=== PATIENT | male | born 1960 | race Caucasian/White ===

== ENCOUNTER 2023-01-14 13:15 | Observation (INO) | payer OTHER, MEDICAID ==
[2023-01-14] MEDS ORDERED: Sodium Chloride 0.9% 1,000 ML IV ONE ×3 (13:19→14:39)
[2023-01-14] MEDS ORDERED: Thiamine 500 MG in Sodium Chloride 0.9% 250 ML IV STA (13:33)
[2023-01-14] MEDS ORDERED: Folic Acid 1 MG/0.2 ML UD Syringe IV STA (13:34)
[2023-01-14 13:45] LABS: BASOPHILS PERCENT AUTO 0.3 % (0.0-1.5); EOSINOPHILS PERCENT AUTO 0.3 % (0.0-7.0); HEMOGLOBIN 13.9 g/dL (13.0-17.0); LYMPHOCYTES ABSOLUTE AUTO 2.8 K/uL (0.6-2.4); LYMPHOCYTES PERCENT AUTO 31.4 % (16.0-40.0); MEAN CORPUSCULAR HEMOGLOBIN 33.1 pg (27.0-32.0); MEAN CORPUSCULAR HGB CONC 35.6 g/dL (31.0-37.0); MEAN CORPUSCULAR VOLUME 92.9 fL (80.0-98.0); MONOCYTES ABSOLUTE AUTO 0.7 K/uL (0.0-0.8); MONOCYTES PERCENT AUTO 7.4 % (0.0-15.0); NEUTROPHILS ABSOLUTE AUTO 5.4 K/uL (1.4-5.7); NEUTROPHILS PERCENT AUTO 60.6 % (48.0-80.0); NRBC ABSOLUTE 0 K/uL; PLATELET COUNT,PLT 247 K/uL (150-400); WHITE BLOOD CELL COUNT,WBC 8.89 K/uL (4.0-11.0)
[2023-01-14 13:51] LABS: INR 1.09 (0.86-1.11); PTT,PARTIAL THROMBOPLSTIN TIME 24.4 SEC (23.9-30.7)
[2023-01-14 14:07] LABS: LACTIC ACID 3.8 mmol/L (0.4-2.0)
[2023-01-14 14:12] LABS: A/G RATIO 1.1 (0.9-1.6); ALBUMIN 3.2 g/dL (3.4-5.0); BILIRUBIN TOTAL 0.7 mg/dL (0.2-1.0); CALCIUM 8.3 mg/dL (8.5-10.1); CARBON DIOXIDE,CO2 27.2 mmol/L (21.0-32.0); CREATININE 1.5 mg/dL (0.8-1.3); EST CRCL DRUG DOSING (CG) 41.66 mL/min; MAGNESIUM 1.9 mg/dL (1.8-2.4); POTASSIUM,K 2.6 mmol/L (3.5-5.1); PROTEIN TOTAL,TP 6.2 g/dL (6.4-8.2); TSH ULTRASENSITIVE 1.24 uIU/mL (0.36-3.74)
[2023-01-14] MEDS ORDERED: Potassium Chloride 20 MEQ Tab.ER PO ONE (14:39)
[2023-01-14] MEDS: Potassium Chloride 100 ML IV SCH ×2 (15:49→19:59)
[2023-01-14] MEDS ORDERED: Sodium Chloride 0.9% 10 ML Syringe FLUSH PRN (16:18)
[2023-01-14] MEDS ORDERED: Ondansetron 4 MG/2 ML SDV IVPUSH PRN (16:18)
[2023-01-14] MEDS ORDERED: Sodium Chloride 0.9% 2.5 ML Syringe FLUSH PRN (16:18)
[2023-01-14] MEDS ORDERED: Acetaminophen 325 MG Tab PO PRN (16:18)
[2023-01-14] MEDS ORDERED: LORazepam 2 MG/ML SDV IVPUSH PRN (16:26)
[2023-01-14] MEDS: Pantoprazole 40 MG in Sodium Chloride 0.9% 10 ML IVPUSH SCH (18:49)
[2023-01-14 19:18] LABS: APPEARANCE,URINE CLEAR; BILIRUBIN,URINE NEGATIVE (NEGATIVE); COLOR,URINE YELLOW; GLUCOSE,URINE NEGATIVE (NEGATIVE); KETONES,URINE NEGATIVE (NEGATIVE); LEUKOCYTE ESTERASE,URINE NEGATIVE (NEGATIVE); NITRITE,URINE NEGATIVE (NEGATIVE); OCCULT BLOOD,URINE NEGATIVE (NEGATIVE); PH,URINE 6.5 (5.0-8.0); PROTEIN,URINE NEGATIVE (NEGATIVE); UROBILINOGEN,URINE 0.2 EU/dL (<2.0)
[2023-01-14 19:28] LABS: AMPHETAMINES SCREEN, URINE NEGATIVE (CUTOFF=500); BARBITURATE SCREEN,URINE NEGATIVE (CUTOFF=200); BENZODIAZEPINES SCREEN,URINE NEGATIVE (CUTOFF=150); BUPRENORPHINE SCREEN,URINE NEGATIVE (CUTOFF=10); METHADONE SCREEN, URINE NEGATIVE (CUTOFF=200); METHAMPHETAMINES SCREEN, URINE NEGATIVE (CUTOFF=500); OXYCODONE SCREEN,URINE NEGATIVE (CUT0FF=100); PCP SCREEN,URINE NEGATIVE (CUTOFF=25); PROPOXYPHENE SCREEN,URINE NEGATIVE (CUTOFF=300); THC SCREEN,URINE 20 NG/ML NEGATIVE (CUTOFF=50)
[2023-01-14] MEDS: Sodium Chloride 0.9% 1,000 ML IV SCH (19:40)
[2023-01-14] MEDS: Thiamine 500 MG in Sodium Chloride 0.9% 250 ML IV SCH (22:33)
[2023-01-15] MEDS: Sodium Chloride 0.9% 1,000 ML IV SCH (00:21)
[2023-01-15 01:16] LABS: LACTIC ACID 3.8 mmol/L (0.4-2.0)
[2023-01-15] MEDS ORDERED: Sodium Chloride 0.9% 1,000 ML IV ONE (03:02)
[2023-01-15] MEDS ORDERED: Potassium Chloride 20 MEQ Tab.ER PO ONE ×2 (03:03→08:18)
[2023-01-15] MEDS: Potassium Chloride 20 MEQ in Premix Bag 1 BAG IV SCH ×2 (03:27→05:34)
[2023-01-15] MEDS: Thiamine 500 MG in Sodium Chloride 0.9% 250 ML IV SCH ×3 (05:25→22:29)
[2023-01-15] MEDS: Losartan 50 MG Tab PO SCH (06:22)
[2023-01-15] MEDS: Metoprolol Tartrate 50 MG Tab PO SCH ×2 (06:23→20:34)
[2023-01-15 06:30] LABS: BASOPHILS PERCENT AUTO 0.3 % (0.0-1.5); EOSINOPHILS PERCENT AUTO 0.3 % (0.0-7.0); HEMATOCRIT 35.6 % (38.0-50.0); HEMOGLOBIN 12.5 g/dL (13.0-17.0); LYMPHOCYTES PERCENT AUTO 14.8 % (16.0-40.0); MEAN CORPUSCULAR HEMOGLOBIN 32.8 pg (27.0-32.0); MEAN CORPUSCULAR HGB CONC 35.1 g/dL (31.0-37.0); MEAN CORPUSCULAR VOLUME 93.4 fL (80.0-98.0); MONOCYTES ABSOLUTE AUTO 0.4 K/uL (0.0-0.8); MONOCYTES PERCENT AUTO 6.4 % (0.0-15.0); NEUTROPHILS PERCENT AUTO 78.2 % (48.0-80.0); NRBC ABSOLUTE 0 K/uL; PLATELET COUNT,PLT 137 K/uL (150-400); RED BLOOD CELL COUNT 3.81 M/uL (4.50-5.90); WHITE BLOOD CELL COUNT,WBC 6.42 K/uL (4.0-11.0)
[2023-01-15] MEDS ORDERED: Labetalol 100 MG/20 ML MDV IVPUSH PRN (08:04)
[2023-01-15 08:11] LABS: CALCIUM 7.4 mg/dL (8.5-10.1); CARBON DIOXIDE,CO2 22.7 mmol/L (21.0-32.0); CREATININE 1.1 mg/dL (0.8-1.3); EST CRCL DRUG DOSING (CG) 61.22 mL/min; MAGNESIUM 1.5 mg/dL (1.8-2.4); POTASSIUM,K 3.4 mmol/L (3.5-5.1)
[2023-01-15] MEDS: Aspirin 81 MG Tab.Chew PO SCH (08:11)
[2023-01-15] MEDS: Folic Acid 1 MG Tab PO SCH (08:11)
[2023-01-15] MEDS: Sertraline 50 MG Tab PO SCH (08:11)
[2023-01-15] MEDS: Rosuvastatin 10 MG Tab PO SCH (08:11)
[2023-01-15] MEDS: Cetirizine 10 MG Tab PO SCH (08:12)
[2023-01-15] MEDS ORDERED: Magnesium Sulfate/Water 4 GM in Premix Bag 1 BAG IV ONE (08:18)
[2023-01-15] MEDS ORDERED: Prasugrel Hcl [Effient] 10 MG Tablet PO SCH (09:00)
[2023-01-15] MEDS: cloNIDine 0.1 MG Tab PO PRN (10:38)
[2023-01-15] MEDS: Prasugrel Hcl [Effient] 10 MG Tablet PO SCH (11:59)
[2023-01-15] MEDS: Pantoprazole 40 MG in Sodium Chloride 0.9% 10 ML IVPUSH SCH (15:55)
[2023-01-16] MEDS: cloNIDine 0.1 MG Tab PO PRN (03:41)
[2023-01-16] MEDS: Thiamine 500 MG in Sodium Chloride 0.9% 250 ML IV SCH ×2 (05:28→15:00)
[2023-01-16 07:08] LABS: BASOPHILS PERCENT AUTO 0.4 % (0.0-1.5); EOSINOPHILS PERCENT AUTO 0.4 % (0.0-7.0); HEMATOCRIT 36.2 % (38.0-50.0); HEMOGLOBIN 12.4 g/dL (13.0-17.0); LYMPHOCYTES PERCENT AUTO 20.4 % (16.0-40.0); MEAN CORPUSCULAR HEMOGLOBIN 32.2 pg (27.0-32.0); MEAN CORPUSCULAR HGB CONC 34.3 g/dL (31.0-37.0); MONOCYTES ABSOLUTE AUTO 0.4 K/uL (0.0-0.8); NEUTROPHILS ABSOLUTE AUTO 3.4 K/uL (1.4-5.7); NEUTROPHILS PERCENT AUTO 69.8 % (48.0-80.0); NRBC ABSOLUTE 0 K/uL; PLATELET COUNT,PLT 115 K/uL (150-400); RED BLOOD CELL COUNT 3.85 M/uL (4.50-5.90); WHITE BLOOD CELL COUNT,WBC 4.89 K/uL (4.0-11.0)
[2023-01-16 07:26] LABS: CALCIUM 8.1 mg/dL (8.5-10.1); CARBON DIOXIDE,CO2 29.4 mmol/L (21.0-32.0); CREATININE 0.9 mg/dL (0.8-1.3); EST CRCL DRUG DOSING (CG) 74.83 mL/min; MAGNESIUM 1.6 mg/dL (1.8-2.4); PHOSPHORUS 2.6 mg/dL (2.6-4.7); POTASSIUM,K 2.9 mmol/L (3.5-5.1)
[2023-01-16] MEDS ORDERED: Potassium Chloride 20 MEQ Tab.ER PO ONE (07:46)
[2023-01-16] MEDS ORDERED: Magnesium Sulfate/Water 4 GM in Premix Bag 1 BAG IV ONE (07:46)
[2023-01-16] MEDS ORDERED: Sodium Chloride 0.9% 750 ML IV ONE (08:00)
[2023-01-16] MEDS: Losartan 50 MG Tab PO SCH (08:31)
[2023-01-16] MEDS: Aspirin 81 MG Tab.Chew PO SCH (08:31)
[2023-01-16] MEDS: Folic Acid 1 MG Tab PO SCH (08:31)
[2023-01-16] MEDS: Sertraline 50 MG Tab PO SCH (08:31)
[2023-01-16] MEDS: Cetirizine 10 MG Tab PO SCH (08:31)
[2023-01-16] MEDS: Prasugrel Hcl [Effient] 10 MG Tablet PO SCH (08:32)
[2023-01-16] MEDS: Potassium Chloride 20 MEQ in Premix Bag 1 BAG IV SCH ×3 (08:34→12:59)
[2023-01-16] MEDS: Metoprolol Tartrate 50 MG Tab PO SCH (08:35)
[2023-01-16] MEDS: Rosuvastatin 10 MG Tab PO SCH (08:35)
[2023-01-16] MEDS: Pantoprazole 40 MG in Sodium Chloride 0.9% 10 ML IVPUSH SCH (17:19)
== END 2023-01-16 16:39 | disposition home or self-care (01) ==
LOC: MW.ED 13:15 → MW.MS 16:07
PROVIDERS: ADMIT Internal Medicine; ATTEND Internal Medicine
DX: F10.121 Alcohol abuse with intoxication delirium (principal); E86.0 Dehydration; E87.6 Hypokalemia; F41.9 Anxiety disorder, unspecified; I10 Essential (primary) hypertension; I25.10 Atherosclerotic heart disease of native coronary artery without angina pectoris; I25.2 Old myocardial infarction; F17.210 Nicotine dependence, cigarettes, uncomplicated; Z20.822 Contact with and (suspected) exposure to COVID-19; Z79.82 Long term (current) use of aspirin; Z79.899 Other long term (current) drug therapy; Z95.5 Presence of coronary angioplasty implant and graft; Z90.49 Acquired absence of other specified parts of digestive tract; Y90.8 Blood alcohol level of 240 mg/100 ml or more
CPT/HCPCS: 36415; 70450; 70496; 70498; 71045; 72125; 80048; 80053; 80305; 80307; 81003; 82140; 82550; 82607; 82947; 83605; 83690; 83735; 84100; 84132; 84443; 84484; 85025; 85610; 85730; 87635; 96361; 96365; 96367; 96375; 97161; 99285; A9270; C9113; J2060; J2405; J3411; J3475; J3480; J3490; J7030; J7050; 93010; 96366; 96368; 96376; 99283; G0378; U0002

== ENCOUNTER 2023-02-10 14:57 | Emergency (ER) | payer OTHER, MEDICAID | END 2023-02-10 15:23 | disposition left against medical advice (07) | LOC: MW.ED 14:57 | DX: Z53.21 Procedure and treatment not carried out due to patient leaving prior to being seen by health care provider (principal) ==

== ENCOUNTER 2023-02-11 09:47 | Emergency (ER) | payer MEDICAID, OTHER ==
[2023-02-11] MEDS ORDERED: Sodium Chloride 0.9% 2.5 ML Syringe FLUSH PRN (11:09)
[2023-02-11] MEDS ORDERED: Aspirin 81 MG Tab.Chew PO ONE (11:09)
[2023-02-11] MEDS ORDERED: Sodium Chloride 0.9% 10 ML Syringe FLUSH PRN (11:09)
[2023-02-11] MEDS ORDERED: Diazepam 2 MG Tab PO ONE (11:29)
[2023-02-11] MEDS ORDERED: Naloxone 0.4 MG/ML SDV IVPUSH PRN (11:29)
[2023-02-11] MEDS ORDERED: fentaNYL 100 MCG/2 ML SDV IVPUSH ONE (11:29)
[2023-02-11 11:41] LABS: BASOPHILS PERCENT AUTO 0.2 % (0.0-1.5); EOSINOPHILS PERCENT AUTO 0.2 % (0.0-7.0); HEMATOCRIT 40.6 % (38.0-50.0); HEMOGLOBIN 14.6 g/dL (13.0-17.0); LYMPHOCYTES ABSOLUTE AUTO 1.8 K/uL (0.6-2.4); LYMPHOCYTES PERCENT AUTO 43.9 % (16.0-40.0); MEAN CORPUSCULAR HEMOGLOBIN 33.3 pg (27.0-32.0); MEAN CORPUSCULAR VOLUME 92.5 fL (80.0-98.0); MONOCYTES ABSOLUTE AUTO 0.5 K/uL (0.0-0.8); MONOCYTES PERCENT AUTO 10.8 % (0.0-15.0); NEUTROPHILS ABSOLUTE AUTO 1.9 K/uL (1.4-5.7); NEUTROPHILS PERCENT AUTO 44.9 % (48.0-80.0); NRBC ABSOLUTE 0 K/uL; PLATELET COUNT,PLT 120 K/uL (150-400); RED BLOOD CELL COUNT 4.39 M/uL (4.50-5.90); WHITE BLOOD CELL COUNT,WBC 4.15 K/uL (4.0-11.0)
[2023-02-11] MEDS: Nitroglycerin 0.4 MG Tab.SL SL PRN ×2 (11:47→12:42)
[2023-02-11 11:51] LABS: INR 1.07 (0.86-1.11); PTT,PARTIAL THROMBOPLSTIN TIME 30.2 SEC (23.9-30.7)
[2023-02-11 12:04] LABS: A/G RATIO 0.8 (0.9-1.6); ALBUMIN 3.4 g/dL (3.4-5.0); BILIRUBIN TOTAL 0.5 mg/dL (0.2-1.0); CALCIUM 8.3 mg/dL (8.5-10.1); CARBON DIOXIDE,CO2 28.7 mmol/L (21.0-32.0); CREATININE 1.8 mg/dL (0.8-1.3); EST CRCL DRUG DOSING (CG) 36.06 mL/min; POTASSIUM,K 3.2 mmol/L (3.5-5.1); PROTEIN TOTAL,TP 7.9 g/dL (6.4-8.2)
[2023-02-11] MEDS ORDERED: Diazepam 2 MG Tab ONE (12:22)
[2023-02-11 13:25] LABS: CORONAVIRUS COVID-19 NAA POSITIVE (NEGATIVE); INFLUENZA A NAA NEGATIVE (NEGATIVE); INFLUENZA B NAA NEGATIVE (NEGATIVE); RESPIRATORY SYNCYTIAL VIR NAA NEGATIVE (NEGATIVE)
[2023-02-11] MEDS ORDERED: Metoprolol Tartrate 5 MG/5 ML SDV IVPUSH ONE (14:13)
[2023-02-11] MEDS ORDERED: LORazepam 2 MG/ML SDV IVPUSH ONE ×2 (14:19→15:10)
[2023-02-11] MEDS ORDERED: Metoprolol Tartrate 25 MG Tab PO ONE (14:27)
[2023-02-11] MEDS ORDERED: Enoxaparin 100 MG/1 ML Syringe SUBCUT ONE (14:30)
[2023-02-11] MEDS ORDERED: droPERidol 5 MG/2 ML SDV IVPUSH ONE (15:10)
== END 2023-02-11 17:21 ==
LOC: MW.ED 09:47
DX: U07.1 COVID-19 (principal); I20.0 Unstable angina; E78.5 Hyperlipidemia, unspecified; I10 Essential (primary) hypertension; Z95.5 Presence of coronary angioplasty implant and graft; Z72.0 Tobacco use; Z88.5 Allergy status to narcotic agent; Z79.82 Long term (current) use of aspirin; Z79.899 Other long term (current) drug therapy
CPT/HCPCS: 0241U; 36415; 71045; 80053; 83880; 84484; 85025; 85610; 85730; 93005; 96372; 96374; 96375; 99291; 99292; A9270; J1650; J1790; J2060; J3010; J3490; 93010

== ENCOUNTER 2023-03-22 15:26 | Emergency (ER) | payer MEDICAID ==
[2023-03-22] MEDS ORDERED: Sodium Chloride 0.9% 2.5 ML Syringe FLUSH PRN (15:27)
[2023-03-22] MEDS ORDERED: Sodium Chloride 0.9% 10 ML Syringe FLUSH PRN (15:27)
[2023-03-22 16:17] LABS: BASOPHILS ABSOLUTE AUTO 0.01 K/uL (0.00-0.20); BASOPHILS PERCENT AUTO 0.2 % (0.0-1.0); EOSINOPHILS ABSOLUTE AUTO 0.01 K/uL (0.00-0.45); EOSINOPHILS PERCENT AUTO 0.2 % (0.0-6.0); HEMATOCRIT 28.8 % (42.0-52.0); HEMOGLOBIN 10.4 g/dL (14.0-18.0); IMMATURE GRAN ABSOLUTE AUTO 0.03 K/uL (0.00-0.05); IMMATURE GRAN PERCENT AUTO 0.6 % (0.0-0.4); LYMPHOCYTES ABSOLUTE AUTO 0.52 K/uL (1.00-4.80); LYMPHOCYTES PERCENT AUTO 11.1 % (24.0-44.0); MEAN CORPUSCULAR HEMOGLOBIN 34.7 pg (28.0-32.0); MEAN CORPUSCULAR HGB CONC 36.1 g/dL (32.0-36.0); MEAN PLATELET VOLUME 9.3 fL (9.4-12.4); MONOCYTES ABSOLUTE AUTO 0.46 K/uL (0.00-0.80); MONOCYTES PERCENT AUTO 9.8 % (0.0-8.0); NEUTROPHILS ABSOLUTE AUTO 3.7 K/uL (1.8-7.7); NEUTROPHILS PERCENT AUTO 78.1 % (41.0-71.0); PLATELET COUNT,PLT 120 K/uL (150-400); WHITE BLOOD CELL COUNT,WBC 4.69 K/uL (3.9-11.3)
[2023-03-22 16:21] LABS: A/G RATIO 0.9 (0.9-1.6); ALBUMIN 3.4 g/dL (3.4-5.0); BILIRUBIN TOTAL 0.2 mg/dL (0.2-1.0); CALCIUM 8.3 mg/dL (8.5-10.1); CARBON DIOXIDE,CO2 23.2 mmol/L (21.0-32.0); EST CRCL DRUG DOSING (CG) 64.92 mL/min; POTASSIUM,K 3.9 mmol/L (3.5-5.1); PROTEIN TOTAL,TP 7.1 g/dL (6.4-8.2)
[2023-03-22 16:35] LABS: INR 1.08 (0.86-1.11)
== END 2023-03-22 18:45 | disposition left against medical advice (07) ==
LOC: MW.ED 15:26
DX: I25.10 Atherosclerotic heart disease of native coronary artery without angina pectoris (principal); I10 Essential (primary) hypertension; Z88.5 Allergy status to narcotic agent; Z79.899 Other long term (current) drug therapy
CPT/HCPCS: 36415; 71045; 80053; 83690; 84484; 85025; 85610; 93005; 99285; J3490; 93010; 99283

== ENCOUNTER 2023-04-06 13:02 | Emergency (ER) | payer MEDICAID ==
[2023-04-06] MEDS ORDERED: Sodium Chloride 0.9% 2.5 ML Syringe FLUSH PRN (13:16)
[2023-04-06] MEDS ORDERED: Sodium Chloride 0.9% 10 ML Syringe FLUSH PRN (13:16)
[2023-04-06] MEDS ORDERED: Sodium Chloride 0.9% 1,000 ML IV ONE (13:16)
[2023-04-06 14:17] LABS: BASOPHILS ABSOLUTE AUTO 0.01 K/uL (0.00-0.20); BASOPHILS PERCENT AUTO 0.2 % (0.0-1.0); IMMATURE GRAN ABSOLUTE AUTO 0.03 K/uL (0.00-0.05); IMMATURE GRAN PERCENT AUTO 0.5 % (0.0-0.4); LYMPHOCYTES ABSOLUTE AUTO 0.54 K/uL (1.00-4.80); LYMPHOCYTES PERCENT AUTO 9.9 % (24.0-44.0); MEAN PLATELET VOLUME 9.6 fL (9.4-12.4); MONOCYTES PERCENT AUTO 12.8 % (0.0-8.0); NEUTROPHILS ABSOLUTE AUTO 4.19 K/uL (1.80-7.70); NEUTROPHILS PERCENT AUTO 76.6 % (41.0-71.0); PLATELET COUNT,PLT 118 K/uL (150-400); WHITE BLOOD CELL COUNT,WBC 5.47 K/uL (3.9-11.3)
[2023-04-06] MEDS ORDERED: Ondansetron 4 MG/2 ML SDV IVPUSH ONE (14:18)
[2023-04-06 14:27] LABS: D-DIMER QUANTITATIVE 0.4 mg/L FEU (0.0-0.50); INR 1.09 (0.86-1.11)
[2023-04-06 14:42] LABS: A/G RATIO 1.1 (0.9-1.6); ALANINE AMINOTRANSFERASE,ALT 113 IU/L (14-63); ALKALINE PHOSPHATASE 64 U/L (46-116); ASPARTATE AMNIOTRANSFERASE,AST 140 IU/L (15-37); BILIRUBIN TOTAL 1.9 mg/dL (0.2-1.0); BLOOD UREA NITROGEN,BUN 4 mg/dL (7.0-18.0); CALCIUM 8.6 mg/dL (8.5-10.1); CARBON DIOXIDE,CO2 24.4 mmol/L (21.0-32.0); CHLORIDE,CL 71 mmol/L (98-107); CREATININE 0.9 mg/dL (0.8-1.3); EST CRCL DRUG DOSING (CG) 74.83 mL/min; GLUCOSE RANDOM 121 mg/dL (74-106); MAGNESIUM 1.7 mg/dL (1.8-2.4); POTASSIUM,K 3.4 mmol/L (3.5-5.1); PROTEIN TOTAL,TP 7.7 g/dL (6.4-8.2); TSH ULTRASENSITIVE 0.74 uIU/mL (0.36-3.74)
[2023-04-06 14:44] LABS: ESTIMATED GFR 95 mL/min (>60); ETHANOL BLOOD MEDICAL < 3.0 mg/dL; RED BLOOD CELL COUNT 3.45 M/uL (4.52-5.90); SODIUM,NA 106 mmol/L (136-148)
[2023-04-06 14:45] LABS: HEMOGLOBIN 11.5 g/dL (14.0-18.0); MEAN CORPUSCULAR HEMOGLOBIN 33.3 pg (28.0-32.0); MEAN CORPUSCULAR HGB CONC 37.1 g/dL (32.0-36.0); MEAN CORPUSCULAR VOLUME 89.9 fL (83.0-99.0)
[2023-04-06] MEDS ORDERED: Sodium Chloride 3% 500 ML IV SCH (15:00)
[2023-04-06] MEDS ORDERED: Lidocaine 1% 5 ML VIAL ONE (15:51)
[2023-04-06 16:46] LABS: APPEARANCE,URINE CLEAR; BILIRUBIN,URINE NEGATIVE (NEGATIVE); COLOR,URINE YELLOW; GLUCOSE,URINE NEGATIVE (NEGATIVE); KETONES,URINE 15 mg/dL (NEGATIVE); LEUKOCYTE ESTERASE,URINE NEGATIVE (NEGATIVE); NITRITE,URINE NEGATIVE (NEGATIVE); OCCULT BLOOD,URINE NEGATIVE (NEGATIVE); PH,URINE 7.5 (5.0-8.0); PROTEIN,URINE NEGATIVE (NEGATIVE)
[2023-04-06 16:56] LABS: AMPHETAMINES SCREEN, URINE NEGATIVE (CUTOFF=500); BARBITURATE SCREEN,URINE NEGATIVE (CUTOFF=200); BENZODIAZEPINES SCREEN,URINE NEGATIVE (CUTOFF=150); BUPRENORPHINE SCREEN,URINE NEGATIVE (CUTOFF=10); METHADONE SCREEN, URINE NEGATIVE (CUTOFF=200); METHAMPHETAMINES SCREEN, URINE NEGATIVE (CUTOFF=500); OXYCODONE SCREEN,URINE NEGATIVE (CUT0FF=100); PCP SCREEN,URINE NEGATIVE (CUTOFF=25); PROPOXYPHENE SCREEN,URINE NEGATIVE (CUTOFF=300); THC SCREEN,URINE 20 NG/ML NEGATIVE (CUTOFF=50)
[2023-04-06] MEDS ORDERED: LORazepam 2 MG/ML SDV ONE (17:01)
[2023-04-06] MEDS ORDERED: LORazepam 2 MG/ML SDV IVPUSH ONE (17:05)
[2023-04-06 17:52] LABS: CREATININE 1.1 mg/dL (0.8-1.3); EST CRCL DRUG DOSING (CG) 61.22 mL/min; POTASSIUM,K 3.6 mmol/L (3.5-5.1)
[2023-04-06 18:10] LABS: CORONAVIRUS COVID-19 NAA NEGATIVE (NEGATIVE); INFLUENZA A NAA NEGATIVE (NEGATIVE); INFLUENZA B NAA NEGATIVE (NEGATIVE)
== END 2023-04-06 17:39 ==
LOC: MW.ED 13:02
DX: E87.1 Hypo-osmolality and hyponatremia (principal); R56.9 Unspecified convulsions; I25.10 Atherosclerotic heart disease of native coronary artery without angina pectoris; E78.00 Pure hypercholesterolemia, unspecified; I25.2 Old myocardial infarction; K21.9 Gastro-esophageal reflux disease without esophagitis; I10 Essential (primary) hypertension; Z20.822 Contact with and (suspected) exposure to COVID-19; Z88.5 Allergy status to narcotic agent; Z79.82 Long term (current) use of aspirin; Z79.899 Other long term (current) drug therapy
CPT/HCPCS: 0240U; 36415; 51702; 70450; 71045; 80048; 80053; 80305; 80307; 81003; 83735; 83880; 83935; 84443; 84484; 85025; 85379; 85610; 93005; 96361; 96374; 96375; 99285; J2060; J2405; J3490; J7030; J7131; 36556; 93010; 99291

== ENCOUNTER 2023-10-14 10:39 | Emergency (ER) | payer MEDICARE, MEDICAID | END 2023-10-14 11:18 | disposition left against medical advice (07) | LOC: MW.ED 10:39 | DX: R07.9 Chest pain, unspecified (principal); I10 Essential (primary) hypertension; I25.2 Old myocardial infarction; K21.9 Gastro-esophageal reflux disease without esophagitis; Z88.8 Allergy status to other drugs, medicaments and biological substances; Z79.82 Long term (current) use of aspirin; Z79.899 Other long term (current) drug therapy; Z75.8 Other problems related to medical facilities and other health care | CPT/HCPCS: 93005; 93010; 99282; 99284 ==